=== PATIENT | female | born 1970 | race African-American/Black ===

== ENCOUNTER 2021-01-22 10:28 | Inpatient (IN) | payer MEDICAID ==
[~2021-01-22] VITALS: Ht 165.1 cm; Wt 104.3 kg
[~2021-01-22 10:28] MED LIST: LACTATED RINGERS 1,000 ML IV SCH
[2021-01-22 11:45] LABS: BASOPHILS % 1.1 % (0.0-2.0); EOSINOPHILS % 1.5 % (0.0-5.0); HEMATOCRIT. 40.7 % (36.0-48.0); HEMOGLOBIN. 13.2 g/dL (12.0-16.0); LYMPHOCYTES % 29.3 % (20.0-50.0); MEAN CORPUSCULAR HEMOGLOBIN 24.1 pg (28.0-32.0); MEAN CORPUSCULAR VOLUME 74.4 fL (81.0-99.0); MEAN PLATELET VOLUME 8.1 fl (7.4-10.4); MONOCYTES % 4.1 % (2.0-8.0); PLATELET 185 x1000/uL (130-400); RED BLOOD CELL COUNT 5.47 mill/uL (4.2-5.4)
[2021-01-22] MEDS ORDERED: MULT-1146 PO (11:46)
[2021-01-22] MEDS ORDERED: ALBU4TAB6 MT (11:46)
[2021-01-22] MEDS ORDERED: MV M PO (11:46)
[2021-01-22] MEDS ORDERED: FERR325T23 PO (11:46)
[2021-01-22] MEDS ORDERED: FERR325T23 MT (11:46)
[2021-01-22 11:54] LABS: CLARITY URINE CLEAR (CLEAR); COLOR URINE YELLOW (YELLOW); KETONES URINE TRACE (NEGATIVE); LEUKOCYTE ESTERASE URINE TRACE (NEGATIVE); NITRITE URINE NEGATIVE (NEGATIVE); OCCULT BLOOD URINE 2+ (NEGATIVE); PH URINE 5.5 (4.5-8.0); PROTEIN URINE TRACE (NEGATIVE); SPECIFIC GRAVITY URINE 1.026 (1.005-1.030); UROBILINOGEN URINE 0.2 E.U./dL (0.2-1.0)
[2021-01-22 12:00] LABS: PARTIAL THROMBOPLASTIN TIME 27.2 sec (23.4-31.0); PROTHROMBIN TIME 10.4 sec (9.6-11.0)
[2021-01-22 12:02] LABS: UCG SCREEN NEGATIVE
[2021-01-22] MEDS ORDERED: ACETAMINOPHEN 500MG TABLET ONE (12:07)
[2021-01-22 12:12] LABS: CHLORIDE 107 mEq/L (98-107)
[2021-01-22] MEDS ORDERED: BUPIVACAINE HCL/PF 0.5% (5MG/ML) 10ML ONE (13:26)
[2021-01-22] MEDS ORDERED: VASOPRESSIN 20 UNIT/ML 1ML ONE (13:27)
[2021-01-22] MEDS ORDERED: PROPOFOL 10MG/ML 100ML 100 ML IV ONE (13:27)
[2021-01-22] MEDS ORDERED: HYDROMORPHONE HCL/PF 2MG/ML (OR) ONE (13:33)
[2021-01-22] MEDS ORDERED: SUCCINYLCHOLINE CHLORIDE 200MG/10ML IV ONE (13:33)
[2021-01-22] MEDS ORDERED: MIDAZOLAM HCL 2 MG/2 ML VIAL ONE (13:34)
[2021-01-22] MEDS ORDERED: ONDANSETRON HCL 4MG/2ML INJ ONE (13:34)
[2021-01-22] MEDS ORDERED: METOCLOPRAMIDE HCL 10MG/2ML VIAL ONE (13:34)
[2021-01-22] MEDS ORDERED: VECURONIUM BROMIDE 10 MG/VIAL IV ONE (13:44)
[2021-01-22] MEDS ORDERED: SODIUM CHLORIDE 0.9% 10ML VIAL ONE ×2 (13:44→14:05)
[2021-01-22] MEDS ORDERED: FENTANYL CITRATE/PF 50MCG/ML 2ML VIAL ONE (13:58)
[2021-01-22] MEDS ORDERED: ESMOLOL HCL 10MG/ML 10ML VIAL IV ONE (14:02)
[2021-01-22] MEDS ORDERED: CEFAZOLIN SODIUM 1000MG/VIAL ONE (14:05)
[2021-01-22] MEDS ORDERED: DEXAMETHASONE 4MG/ML 1ML VIAL ONE (14:15)
[2021-01-22] MEDS ORDERED: SKIN ADHESIVE 0.7 GM EA TOP ONE (16:32)
[2021-01-22] MEDS ORDERED: GLYCOPYRROLATE 0.2 MG/ML 2ML VIAL ONE (16:47)
[2021-01-22] MEDS ORDERED: NEOSTIGMINE METHYLSULFATE 1MG/ML 10 ML VIAL ONE (16:47)
[2021-01-22] MEDS ORDERED: MEPERIDINE HCL/PF 25MG/ML CPJ IV PRN (17:00)
[2021-01-22] MEDS ORDERED: LABETALOL 5MG/ML SYR 20 MG/4 ML SYRINGE IV PRN (17:00)
[2021-01-22] MEDS: ONDANSETRON HCL 4MG/2ML INJ IV PRN ×2 (17:38→20:50)
[2021-01-22] MEDS: HYDROMORPHONE HCL/PF 2MG/ML CPJ IV PRN ×4 (17:39→20:52)
[2021-01-22 21:35] VITALS: BP 129/71
[2021-01-22] MEDS ORDERED: HYDROCODONE/ACETAMINOPHEN 10/325MG TABLET PO PRN ×3 (23:30→23:45)
[2021-01-22] MEDS ORDERED: ONDANSETRON HCL 4MG/2ML INJ IV PRN ×2 (23:30→23:45)
[2021-01-22] MEDS ORDERED: KETOROLAC 30MG/ML VIAL IV SCH (23:30)
[2021-01-22] MEDS ORDERED: MORPHINE SULFATE 2 MG/ML CPJ (NOT FOR IM USE) IV PRN (23:45)
[2021-01-22] MEDS ORDERED: ACETAMINOPHEN 325MG TABLET PO PRN (23:45)
[2021-01-22] MEDS ORDERED: LACTATED RINGERS 1,000 ML IV ONE (23:45)
[2021-01-22] MEDS ORDERED: IPRATROPIUM/ALBUTEROL 0.5-3(2.5)MG/3ML NEB NEB PRN (23:45)
[2021-01-22] MEDS: KETOROLAC 30MG/ML VIAL IV SCH (23:56)
[2021-01-23] MEDS ORDERED: FERR325T6 MT (01:17)
[2021-01-23] MEDS ORDERED: PROSOL IH (01:17)
[2021-01-23 04:00] VITALS: BP 134/67
[2021-01-23] MEDS: KETOROLAC 30MG/ML VIAL IV SCH ×3 (06:01→17:55)
[2021-01-23 06:41] LABS: BASOPHILS % 0.2 % (0.0-2.0); HEMATOCRIT. 37.3 % (36.0-48.0); HEMOGLOBIN. 12.4 g/dL (12.0-16.0); LYMPHOCYTES % 10.3 % (20.0-50.0); MEAN CORPUSCULAR HEMOGLOBIN 24.6 pg (28.0-32.0); MEAN CORPUSCULAR VOLUME 74.2 fL (81.0-99.0); MEAN PLATELET VOLUME 8.3 fl (7.4-10.4); MONOCYTES % 4.7 % (2.0-8.0); NEUTROPHILS % 84.8 % (40.0-76.0); PLATELET 191 x1000/uL (130-400); RED BLOOD CELL COUNT 5.03 mill/uL (4.2-5.4); RED CELL DISTRIBUTION WIDTH 17.2 % (11.6-14.6)
[2021-01-23 06:45] LABS: CHLORIDE 105 mEq/L (98-107)
[2021-01-23 08:00] VITALS: BP 114/70
[2021-01-23] MEDS: SODIUM CHLORIDE 0.9% 1,000 ML IV SCH ×2 (09:06→23:05)
[2021-01-23 12:00] VITALS: BP 111/62
[2021-01-23 16:00] VITALS: BP 108/66
[2021-01-23 20:00] VITALS: BP 111/49
[2021-01-24] VITALS: BP 104/47
[2021-01-24] MEDS: KETOROLAC 30MG/ML VIAL IV SCH ×4 (00:21→18:04)
[2021-01-24 04:00] VITALS: BP 125/68
[2021-01-24] MEDS: SODIUM CHLORIDE 0.9% 1,000 ML IV SCH (12:22)
[2021-01-24 16:00] VITALS: BP 128/78
[2021-01-24] MEDS ORDERED: GUAIFENESIN-DM 200MG-20MG/10ML UDC PO PRN (18:15)
[2021-01-24 18:18] VITALS: BP 127/78
== END 2021-01-24 20:12 | disposition home or self-care (01) | DRG 519 ==
LOC: OR 10:28 → 6EST 10:29
PROVIDERS: ADMIT Internal Medicine; ATTEND Obstetrics & Gynecology
PROC: 0UT9FZZ Resection of Uterus, Via Natural or Artificial Opening With Percutaneous Endoscopic Assistance (ICD-10-PCS; principal; 2021-01-22)
PROC: 8E0W8CZ Robotic Assisted Procedure of Trunk Region, Via Natural or Artificial Opening Endoscopic (ICD-10-PCS; 2021-01-22)
PROC: 3E0T3BZ Introduction of Anesthetic Agent into Peripheral Nerves and Plexi, Percutaneous Approach (ICD-10-PCS; 2021-01-22)
DX: D25.9 Leiomyoma of uterus, unspecified (principal); J45.909 Unspecified asthma, uncomplicated; G89.29 Other chronic pain; R10.2 Pelvic and perineal pain; M25.559 Pain in unspecified hip; M25.569 Pain in unspecified knee; N94.6 Dysmenorrhea, unspecified; E66.9 Obesity, unspecified; Z68.38 Body mass index [BMI] 38.0-38.9, adult
CPT/HCPCS: 36415; 80048; 81003; 81025; 85025; 88305; 94640; 97162; J0330; J0690; J1100; J1170; J1885; J2175; J2250; J2405; J2704; J2710; J2765; J3010; J3490; J7030; J7040